=== PATIENT | female | born 1995 | race Caucasian/White ===

== ENCOUNTER → 2016-09-24 11:39 | Observation (INO) ==
--- NOTE | 2016-09-24 09:16 | OB/GYN History & Physical ---
Date of Encounter: 09/24/16 Time of Encounter: 09:12 Assessment and Plan (1) 37 weeks gestation of Current visit: Yes Status: Acute monitor heart rate and uterine tone via external monitoring check cervical progression check for rupture of membranes (2) Small for gestational age fetus affecting management of mother in [place] in third trimester Current visit: Yes Status: Acute (3) Abnormal quad screen Current visit: Yes Status: Acute History of Present Illness Chief complaint: decreased movement HPI: Ms. Mcgowan is a 21 year old female at 37 weeks 3 days here today for decreased movement. She states that last night when she laid down the fetus did not increase and movement as per normal. There also was decreased movement this morning. She was told that there was decreased amniotic fluid during ultrasound at her last visit and came in today due to concern. She denies headache, blurry vision, vaginal spotting, vaginal leaking of fluid, pedal edema. She does report that she had a large amount of mucus followed by vaginal leaking of fluid one week ago. This has stopped. Labs: Group B strep negative. Rubella and varicella nonimmune. Hepatitis B, HIV, syphilis, gonorrhea, chlamydia negative. Past Med Surg Social Fam HX - Past Medical History Medical history: other Psychiatric history: no psych history - Past Surgical History Surgical History: other - Social History Smoking Status: Never smoker Smokeless Tobacco Status: No Alcohol use: none Drug use: none - Family History Mother Name: Rufina Living Status: Still Living Hx Family Cardiac Disorders: No Hx Family Respiratory Disorders: No Hx Family Cancer: No Hx Family GI Disorders: No Hx Family Genitourinary Disorders: No Hx Family Endocrine Disorder: No Hx Family Musculoskeletal Disorders: No Hx Family Neuromuscular Disorders: No Hx Family Neurologic Disorders: No Hx Family HEENT Disorders: No Hx Family Autoimmune Disorders: No Hx Family Reproductive Disorders: No Hx Family Psychosocial Disorders: No Hx Family Medical Disorders: No Obstetrical History - Pregnancies : 2 Medications and Allergies Allergies Sulfa (Sulfonamide Antibiotics) Allergy (Verified 02/16/16 08:49) See Comments Review of System OB - Constitutional Constitutional ROS IM: as per HPI Exam - Constitutional Constitutional: well developed, well nourished, no acute distress, average body habitus - HEENT HEENT: Normocephaly, Mucus Membranes Moist - Neck Neck exam: supple - Lungs Respiratory exam: CTAB - Cardiovascular Cardiovascular exam: RRR, +S1, +S2 - Abdomen Abdomen: Present: bowel sounds normal, gravid, non tender - Extremities Extremities exam: normal inspection, warm Results All other labs normal.
== END | disposition home or self-care (01) ==
LOC: 1NENULAB
PROVIDERS: ADMIT Student in an Organized Health Care Education/Training Program; ATTEND Student in an Organized Health Care Education/Training Program

== ENCOUNTER 2016-10-03 09:14 | Inpatient (IN) ==
[2016-10-03] MEDS ORDERED: Naloxone 0.4 MG/ML INJ IVP PRN (09:30)
[2016-10-03] MEDS ORDERED: Famotidine 20 MG/2 ML VIAL IVP PRN (09:30)
[2016-10-03] MEDS ORDERED: *HR* Nalbuphine 20 MG/ML AMPUL IVP PRN (09:32)
[2016-10-03] MEDS ORDERED: Ondansetron 4 MG/2 ML VIAL IVP PRN (09:32)
[2016-10-03] MEDS ORDERED: miSOPROStol 25 MCG TABLET PO PRN (09:33)
[2016-10-03] MEDS ORDERED: Ringers Solution, Lactated 1,000 ML IVC SCH (09:45)
[2016-10-03 10:04] LABS: Basophils % 0.2 %; Eosinophils # 0.6 K/mcL (0.0-0.6); Eosinophils % 5.1 %; Hematocrit 36.5 % (35.3-44.9); Hemoglobin 12.5 g/dL (11.5-15.4); Immature Granulocytes % 0.8 % (0-4); Lymphocytes # 1.7 K/mcL (0.6-4.6); Lymphocytes % 13.7 %; Mean Corpuscular HGB Conc 34.2 g/dL (31.6-35.5); Mean Corpuscular Hemoglobin 30.1 pg (28.0-33.3); Mean Platelet Volume 10.8 fL (9.4-12.4); Monocytes # 0.7 K/mcL (0.0-1.3); Monocytes % 5.4 %; Neutrophils # 9.2 K/mcL (1.6-8.9); Platelet Count 200 K/mcL (140-400); Red Blood Count 4.15 M/mcL (3.82-4.97); Red Cell Distribution Width 13.8 % (11.5-14.5); Segmented Neutrophils % 74.8 %
[2016-10-03] MEDS ORDERED: miSOPROStol 25 MCG TABLET VG PRN (10:34)
--- NOTE | 2016-10-03 10:46 | Anesthesia Evaluation PreOp ---
Date of Encounter: 10/03/16 Time of Encounter: 10:44 - Past History Planned Operation: vaginal del, Cardiac History: Denies any Significant Hx, Other (MVP, no functional limitations, no aud murmur.) Pulmonary History: Denies Any Significant HX RITUAL CIRCUMCISER History: Denies Any Significant HX Other Medical History: Thyroid (hyper, previous managed on synthroid.) Anesthesia History: No Prior Anesthetic Complications, Past Anesthesia (t/a, egd 's) : Yes (39) Alcohol Use: none Drug use: none Medications and Allergies Pnv Plus Multivit Tab 1 cap PO DAILY 10/03/16 [History] Allergies Sulfa (Sulfonamide Antibiotics) Allergy (Verified 02/16/16 08:49) See Comments Anesthesia Results - Labs 10/03/16 09:40 Anesthesia Exam - HEENT Pupil (Motor): Pupils equal Mallampati: II Teeth: Normal Oral Opening: Greater than 3 - RITUAL CIRCUMCISER LOC: Oriented RITUAL CIRCUMCISER Motor: Normal RUE, Normal LUE, Normal RLE, Normal LLE, Normal Face RITUAL CIRCUMCISER Sensory: Normal: RUE, LUE, RLE, LLE, Face - Cardiac Rhythm: Regular Murmur: None - Pulmonary Breath Sounds: bilateral Clear Respiratory Effort: Symmetrical Anesthesia Assess/Plan ASA Score: 2 Modified [place] Scale for Level of Consciousness: Cooperative, oriented, and tranquil Anesthetic Plan: General, Regional Monitoring Plan: Standard Monitors
--- NOTE | 2016-10-03 10:58 | OB/GYN History & Physical ---
Date of Encounter: 10/03/16 Time of Encounter: 10:53 Assessment and Plan (1) Oligohydramnios Current visit: Yes Status: Acute Admit for IOL. GBS negative SVE 1/thick Cytotec 25 vaginally Reynolds placed in cervix using sterile technique, balloon inflated with 30 mL sterile water. Pt tolerated well. Epidural when requested. Anticipate . Qualifiers: Fetus number: single or unspecified fetus Trimester: third trimester Qualified Code(s): O41.03X0 - Oligohydramnios, third trimester, not applicable or unspecified (2) 38 weeks gestation of Current visit: Yes Status: Acute (3) Small for gestational age fetus affecting management of mother in [place] in third trimester Current visit: No Status: Acute History of Present Illness Chief complaint: Oligohydramnios, IUGR, IOL HPI: Ms. Mcgowan is a 21 year old female presenting at 38w5d for IOL due to Oligohydramnios and IUGR. Patient reports this has been going well and denies many problems. Today, she states she feels good overall. History and medications reviewed. Patient reports medical history of mitral valve prolapse and esophagitis, with yearly EGDs for monitoring. Patient reports only taking vitamins and no other medications. Denies any problems with previous , reports a daughter that is currently 18 months old. Patient denies any current complaints. Good movement reported. Blood type A positive, GBS negative, serologies negative, rhubella non-immune. Past Med Surg Social Fam HX - Past Medical History Medical history: thyroid disease, other Psychiatric history: no psych history - Past Surgical History Surgical History: other - Social History Smoking Status: Never smoker Smokeless Tobacco Status: No Alcohol use: none Drug use: none - Family History Mother Living Status: Still Living Hx Family Cardiac Disorders: No Hx Family Respiratory Disorders: No Hx Family Cancer: No Hx Family GI Disorders: No Hx Family Endocrine Disorder: No Hx Family Neuromuscular Disorders: No Hx Family Neurologic Disorders: No Hx Family HEENT Disorders: No Hx Family Autoimmune Disorders: No Brother Adopted: No Family Member Ethnicity: Non- Living Status: Still Living Hx Family Cardiac Disorders: No Hx Family Respiratory Disorders: Yes (asthma) Hx Family Cancer: No Hx Family GI Disorders: No Hx Family Genitourinary Disorders: No Hx Family Endocrine Disorder: No Hx Family Musculoskeletal Disorders: No Hx Family Neuromuscular Disorders: No Hx Family Neurologic Disorders: No Hx Family HEENT Disorders: No Hx Family Autoimmune Disorders: No Hx Family Reproductive Disorders: No Hx Family Psychosocial Disorders: No Hx Family Medical Disorders: No Obstetrical History - Pregnancies : 2 Medications and Allergies Pnv Plus Multivit Tab 1 cap PO DAILY 10/03/16 [History] Allergies Sulfa (Sulfonamide Antibiotics) Allergy (Verified 02/16/16 08:49) See Comments Review of System OB All systems PM: reviewed and no additional remarkable complaints except as stated Exam - Vital Signs Vital signs: Initial Vital Signs Pulse Resp BP 94 16 102/67 10/03/16 09:42 10/03/16 09:42 10/03/16 09:42 - Constitutional Constitutional: well developed, well nourished, no acute distress - Lungs Respiratory exam: CTAB - Cardiovascular Cardiovascular exam: RRR - Abdomen Abdomen: Present: gravid, non tender - Extremities Extremities exam: full ROM, normal inspection - Vagina Vagina: Present: normal moisture - Cervix Dilation: 1 Effacement: 0 Station: -2 - Uterus Uterus exam: Present: normal size. Absent: tender - Anus/Rectum Anus/Rectum: Present: normal perianal skin Results Result Diagrams: 10/03/16 09:40 Abnormal lab results WBC 12.4 K/mcL (4.3-11.1) H 10/03/16 09:40 Neutrophils # 9.2 K/mcL (1.6-8.9) H 10/03/16 09:40 All other labs normal. - VTE Reasons for not Prescribing Prophylaxis: Treatment not Indicated - Low risk for VTE
--- NOTE | 2016-10-03 14:35 | OB Labor Progress Note ---
Date of Encounter: 10/03/16 Time of Encounter: 14:33 Labor Progress Note - Subjective Subjective: Pt reports mild to moderate discomfort with contractions. - Cervix Cervix: 3-4/50/-1 - Heart Tones Heart Tones: Category I - [place]: 2-3 minutes - Plan Plan: Reynolds out at this time. Will AROM shortly. Anticipate .
--- NOTE | 2016-10-03 14:56 | OB Labor Progress Note ---
Date of Encounter: 10/03/16 Time of Encounter: 14:54 Labor Progress Note - Subjective Subjective: Pt reports pain is now 7/10 with contractions - Cervix Cervix: 3-4/50/-1 - Heart Tones Heart Tones: Category I - [place]: 2-3 - Interventions Interventions: AROM for moderate amount clear fluid - Plan Plan: Epidural when requested. Will augment with pitocin if needed for adequate contraction pattern. Anticipate .
[2016-10-03] MEDS ORDERED: *HR* FentaNYL (PF) 100 MCG/2 ML VIAL ONE (16:00)
[2016-10-03] MEDS ORDERED: Epidural Premix (fent/bupiv) 110 ML EP ONE ×2 (16:00→21:59)
[2016-10-03] MEDS ORDERED: *HR* Ropivacaine/PF 0.2% 10 ML AMPUL ONE ×2 (16:00→20:04)
[2016-10-03] MEDS ORDERED: *HR* Ropivacaine/PF 0.2% 10 ML AMPUL EP ONE (16:23)
[2016-10-03] MEDS ORDERED: EPHEDrine 50 MG/ML VIAL IVP PRN (16:23)
[2016-10-03] MEDS ORDERED: *HR* FentaNYL (PF) 100 MCG/2 ML VIAL EP ONE (16:23)
--- NOTE | 2016-10-03 16:27 | Anesthesia Procedures ---
Date of Encounter: 10/03/16 Time of Encounter: 16:25 Procedures: Anesthesia - Epidural/Spinal Patient ID/Chart reviewed: Yes Patient examined: Yes OB Eval: Contractions: Non-stressed pattern Consent Obtained: Yes Supplemental Oxygen: None/Room Air Site Prep: Aseptic Technique Patient position: upright Local Anesthetic: Lidocaine 1% Touhy Needle Gauge: 18 Touhy Needle Depth (cm): 4 Catheter Depth at Skin (cm): 10 Test Dose (1.5% Lido + Epi): Volume given (mls): 3 Test Dose Result: Negative Loading Dose: 0.25% Marcaine (mls): 6 Loading Dose: Fentanyl (mcg): 100 Loading Dose: Other: 2ml nss Loading Dose Administered: Thru Touhy Needle Infusion Med: 0.125% Bupivacaine w/ 2 mcg/ml Fentanyl Infusion Rate (mls/hr): 15 Interspace Used: L3-L4 Loss of Resistance (LOIS): Yes Blood: No CSF: No Paresthesia: No
[2016-10-03] MEDS ORDERED: Epidural Premix (fent/bupiv) 110 ML EP SCH (16:30)
--- NOTE | 2016-10-03 17:11 | OB Labor Progress Note ---
Date of Encounter: 10/03/16 Time of Encounter: 17:09 Labor Progress Note - Subjective Subjective: Pt reports she is comfortable with epidural. - Cervix Cervix: 4/60/-1 - Heart Tones Heart Tones: Category I - [place]: 2-3 - Interventions Interventions: IUPC placed - Plan Plan: Continue to monitor. Will augment with pitocin if needed for adequate contractions.
[2016-10-03] MEDS ORDERED: Oxytocin 20 units/ LR 1000 mL 20 UNIT/1,000 ML BAG IVC SCH (17:45)
--- NOTE | 2016-10-03 19:59 | OB Labor Progress Note ---
Date of Encounter: 10/03/16 Time of Encounter: 19:57 Labor Progress Note - Subjective Subjective: Pt reports pain 6/10 with contractions. - Cervix Cervix: 4/80/-1 - Heart Tones Heart Tones: Category I - [place]: 2-3 minutes - Interventions Interventions: Pt repositioned to right lateral with peanut ball. - Plan Plan: Continue to monitor and titrate pitocin for adequate contractions.
--- NOTE | 2016-10-04 01:57 | OB/GYN Procedure Note ---
Delivery - Delivery Date: 10/04/16 Provider: Alyssa Thomas Intrapartum events: oligohydramnios Delivery induction: edward, misoprostol Delivery augmentation: rupture of membranes, pitocin Delivery monitor: external FHT, internal uterine Anesthesia: epidural Estimated Blood Loss: 200 - (s) Infant A Infant Delivery Date: 10/04/16 Delivery Time: 01:27 Presentation: vertex Position: BERNARDINO Route of delivery: Gender: Female Viability: Viable Pounds: 6 Ounces: 4 Weight Gram: 2850 kg at 1 minute: 8 at 5 mins: 9 Shoulder Dystocia: not encountered Specimens collected: cord blood Placenta: spontaneous Cord: nuchal cord, 3 umbilical vessels, nuchal reduced - Repair Episiotomy: none Laceration Description: None - Complications Delivery complications: none Delivery comments: 21 year-old presenting for IOL due to oligohydramnios at 38 weeks. Pt received edward and cytotec for induction and then her labor was augmented with AROM and pitocin. She had an epidural for pain control. She progressed normally to over intact perineum for viable female infant weighing 6lbs 4oz. with apgars 8/9. After a 60 second delay the cord was clamped and cut and the placenta delivered spontaneous and intact. No lacerations were noted. EBL 200ml. Mother and baby stable in kangaroo care following delivery. - Disposition Mom disposition: stable in LDR disposition: stable in LDR
[2016-10-04] MEDS ORDERED: Oxytocin 20 units/ LR 1000 mL 20 UNIT/1,000 ML BAG IVC SCH (02:19)
[2016-10-04] MEDS ORDERED: Measles/Mumps/Rubella Vacc 0.5 ML VIAL SQ PRN (02:19)
[2016-10-04] MEDS: Ibuprofen 600 MG TABLET PO PRN ×2 (05:25→16:10)
[2016-10-04] MEDS: Prenatal Vit/FA 1 EACH TABLET PO SCH (07:35)
[2016-10-04] MEDS: Acetaminophen 325 MG TABLET PO PRN ×2 (07:35→20:38)
[2016-10-05] MEDS: Ibuprofen 600 MG TABLET PO PRN (06:05)
[2016-10-05] MEDS: Prenatal Vit/FA 1 EACH TABLET PO SCH (08:17)
[2016-10-05 08:38] VITALS: BP 102/66
--- NOTE | 2016-10-05 08:38 | Discharge Summary ---
Date of Encounter: 10/05/16 Time of Encounter: 08:36 - Discharge Diagnosis (1) Vaginal delivery Priority: Primary Status: Acute Comments: Patient doing well post vaginal delivery day 1. Pain well controlled VSS Lochia light and without clots Passing flatus and urinating without difficulty Follow up in office in 6 weeks Discharge home today - Discharge Medications Prescriptions: Ibuprofen [Motrin] 600 mg PO Q6HR PRN #60 tablet PRN Reason: Cramping Home Medications: Pnv Plus Multivit Tab 1 cap PO DAILY 10/03/16 [History] Docusate [Colace] 100 mg PO BID capsule 10/05/16 [Rx] Ibuprofen [Motrin] 600 mg PO Q6HR PRN #60 tablet 10/05/16 [Rx] Allergies/Adverse Reactions: Allergies Sulfa (Sulfonamide Antibiotics) Allergy (Verified 02/16/16 08:49) See Comments Data Procedures and tests throughout hospitalization: Laboratory Tests 10/03/16 09:40 WBC 12.4 H RBC 4.15 Hgb 12.5 Hct 36.5 MCV 88.0 MCH 30.1 MCHC 34.2 RDW 13.8 Plt Count 200 MPV 10.8 Immature Gran % 0.8 Seg Neutrophils % 74.8 Lymphocytes % 13.7 Monocytes % 5.4 Eosinophils % 5.1 Basophils % 0.2 Neutrophils # 9.2 H Lymphocytes # 1.7 Monocytes # 0.7 Eosinophils # 0.6 Basophils # 0.0 Date of admission: 10/03/16 09:14 Primary care physician: Nixon Zheng CNP Discharging clinician: Sahra Gutierrez Anticipated date of discharge: 10/05/16 - Patient Status Disposition: Home, Self-Care Condition: Good Functional capacity at discharge: independent ambulation Overall status at discharge: patient is progressing back to baseline - Discharge Instructions Follow Up With: Nixon Zheng CNP [Primary Care Provider] - Alyssa Thomas CNM [Non-Partnered Physician] - - Diet and Activity Activity: increase activity as tolerated Diet: regular diet Hospital Course Reason for admission: induction of labor, IUP at term Delivery: Episiotomy: none Laceration: none Other procedures: none complications: none Discharge diagnosis: IUP at term delivered baby: female Time Attestation: Total time spent providing and/or coordinating discharge services: Time Spent: Less than 30 minutes Exam - Constitutional Vitals: Temp Pulse Resp BP Pulse Ox 97.6 F 78 16 93/64 97 10/04/16 20:45 10/04/16 20:45 10/04/16 20:45 10/04/16 20:45 10/04/16 20:45 General appearance IM: cooperative, A&O X 3, pleasant - Respiratory Respiratory exam: Present: CTAB - Cardiovascular Cardiovascular exam IM: Present: RRR, +S1, +S2 - GI/Abdominal GI/Abdominal exam IM: normal bowel sounds, soft - Rectal Rectal exam: deferred - Uterine Tone: Firm Uterus Position: 1 Finger Below Umbilicus, Midline - Extremities Exam Extremities exam IM: Present: normal capillary refill, normal inspection, radial pulses palpable and symetrical. Absent: tenderness - Neurological Exam Neurological exam: alert, oriented X3
== END 2016-10-05 13:08 | disposition home or self-care (01) | DRG 560 ==
LOC: 1NENULAB 09:14 → 1NENUOBS 10-04 04:27
PROVIDERS: ADMIT Obstetrics & Gynecology; ATTEND Obstetrics & Gynecology

== ENCOUNTER → 2017-08-11 16:21 | Observation (INO) ==
[2017-08-11 15:59] LABS: Amphetamine Screen,Urine Negative ng/mL (Cutoff=1000); Barbiturate Screen,Urine Negative ng/mL (Cutoff=200); Benzodiazepines Screen,Urine Negative ng/mL (Cutoff=200); Cannabinoid Screen,Urine Negative ng/mL (Cutoff = 50); Cocaine Screen,Urine Negative ng/mL (Cutoff= 300); Opiate Screen,Urine Negative ng/mL (Cutoff=300); Phencyclidine Screen,Urine Negative ng/mL (Cutoff=25)
--- NOTE | 2017-08-11 17:16 | OB/GYN Progress Note ---
Date of Encounter: 08/11/17 Time of Encounter: 17:14 - Assessment and Plan (1) 39 weeks gestation of Current Visit: Yes Status: Acute (2) Encounter for suspected PROM, with rupture of membranes not found Current Visit: Yes Status: Acute Nitrazine and fern negative. Discharged home with when to return to triage precautions. IOL scheduled for AM. Subjective - Subjective Interval history: Sent over from office for evaluation for rupture of membranes. pt states leaking fluid when ambulating since yesterday. Reports good movement, denies vaginal bleeding or contractions. Antepartum ROS: loss of fluid, movement normal, no vaginal bleeding, no contractions Objective - Vital Signs Vital Signs: Intake and Output 08/11/17 08/11/17 08/11/17 07:59 15:59 23:59 Other: Weight 80.1 kg Patient Weight 08/11/17 23:59 Weight 80.1 kg - Exam FHR: auscultation normal FHR comments: Baseline 130 Abdomen: Present: normal appearance, soft, gravid Uterus: Present: normal Cervical dilation: 3/50
== END | disposition home or self-care (01) ==
LOC: 1NENULAB
PROVIDERS: ADMIT Obstetrics & Gynecology; ATTEND Obstetrics & Gynecology

== ENCOUNTER 2017-08-12 06:00 | Inpatient (IN) ==
[2017-08-12] MEDS ORDERED: Ondansetron 4 MG/2 ML VIAL IVP PRN (06:32)
[2017-08-12] MEDS ORDERED: Metoclopramide 10 MG/2 ML VIAL IVP PRN (06:32)
[2017-08-12] MEDS ORDERED: *HR* Nalbuphine 10 MG/ML AMPUL IVP PRN (06:32)
[2017-08-12] MEDS ORDERED: Famotidine 20 MG/2 ML VIAL IVP PRN (06:32)
[2017-08-12] MEDS ORDERED: Naloxone 0.4 MG/ML INJ IVP PRN (06:32)
[2017-08-12] MEDS ORDERED: Ringers Solution, Lactated 1,000 ML IVC SCH (06:45)
--- NOTE | 2017-08-12 06:59 | Anesthesia Evaluation PreOp ---
Date of Encounter: 08/12/17 Time of Encounter: 06:52 - Past History Planned Operation: vaginal del, induction Cardiac History: Other (MVP, METS >4 without comp) Pulmonary History: Denies Any Significant HX PUBLIC HEALTH NUTRITIONIST History: Denies Any Significant HX Other Medical History: Other (scoliosis, no radiculopathy or medical RX done. previous 2 epidural without problems) Anesthesia History: No Prior Anesthetic Complications, Past Anesthesia Alcohol Use: none Drug use: none Medications and Allergies Pnv Plus Multivit Tab 1 cap PO DAILY 10/03/16 [History] Ferrous Sulfate [Iron] 325 mg PO BID 07/01/17 [History] 3 Allergy/AdvReac Type Severity Reaction Status Date / Time Sulfa (Sulfonamide Allergy See Verified 04/13/17 02:31 Antibiotics) Comments Anesthesia Exam - HEENT Pupil (Motor): Pupils equal Mallampati: II Oral Opening: Less than or equal to 3 - PUBLIC HEALTH NUTRITIONIST LOC: Oriented PUBLIC HEALTH NUTRITIONIST Motor: Normal RUE, Normal LUE, Normal RLE, Normal LLE, Normal Face PUBLIC HEALTH NUTRITIONIST Sensory: Normal: RUE, LUE, RLE, LLE, Face - Cardiac Rhythm: Regular Murmur: None - Pulmonary Breath Sounds: bilateral Clear Respiratory Effort: Symmetrical Anesthesia Assess/Plan ASA Score: 2 Modified [place] Scale for Level of Consciousness: Cooperative, oriented, and tranquil Anesthetic Plan: General, Regional Monitoring Plan: Standard Monitors Recovery Plan: PACU
[2017-08-12] MEDS ORDERED: *HR* FentaNYL (PF) 100 MCG/2 ML VIAL EP ONE (07:00)
[2017-08-12] MEDS ORDERED: Epidural Premix (fent/bupiv) 110 ML EP SCH (07:00)
[2017-08-12] MEDS ORDERED: EPHEDrine 50 MG/ML VIAL IVP PRN (07:00)
[2017-08-12] MEDS ORDERED: Bupivacaine-MPF 0.25% 10 ML VIAL EP ONE (07:00)
[2017-08-12] MEDS ORDERED: Oxytocin 20 units/ LR 1000 mL 20 UNIT/1,000 ML BAG IVC SCH (07:30)
[2017-08-12 07:32] LABS: Basophils % 0.2 %; Eosinophils # 0.2 K/mcL (0.0-0.6); Eosinophils % 1.8 %; Hematocrit 38.5 % (35.3-44.9); Immature Granulocytes % 1.6 % (0-4); Lymphocytes # 1.6 K/mcL (0.6-4.6); Lymphocytes % 12.1 %; Mean Corpuscular HGB Conc 33.8 g/dL (31.6-35.5); Mean Corpuscular Hemoglobin 30.7 pg (28.0-33.3); Mean Platelet Volume 10.9 fL (9.4-12.4); Monocytes # 0.8 K/mcL (0.0-1.3); Platelet Count 176 K/mcL (140-400); Red Blood Count 4.23 M/mcL (3.82-4.97); Red Cell Distribution Width 14.3 % (11.5-14.5); Segmented Neutrophils % 78.3 %
--- NOTE | 2017-08-12 07:37 | OB/GYN History & Physical ---
Date of Encounter: 08/12/17 Time of Encounter: 07:35 Assessment and Plan (1) 39 weeks gestation of Current visit: No Status: Acute start pitocin for IOL, ok for epidural if desired, anticipate History of Present Illness HPI: Ms. Pereira is a 22 year old female @ 39+2 weeks who presents to the office for her scheduled IOL, she does not report LOF, VB or ctxs, feels good FM, course uncomplicated so far, GBS neg. Past Med Surg Social Fam HX - Past Medical History Medical history: valvular heart disease Psychiatric history: no psych history - Past Surgical History Surgical History: other - Social History Smoking Status: Never smoker Smokeless Tobacco Status: No Alcohol use: none Drug use: none - Family History Mother Living Status: Still Living Hx Family Cardiac Disorders: No Hx Family Respiratory Disorders: No Hx Family Cancer: No Hx Family GI Disorders: No Hx Family Endocrine Disorder: No Hx Family Neuromuscular Disorders: No Hx Family Neurologic Disorders: No Hx Family HEENT Disorders: No Hx Family Autoimmune Disorders: No Brother Adopted: No Family Member Ethnicity: Non- Living Status: Still Living Hx Family Cardiac Disorders: No Hx Family Respiratory Disorders: Yes Hx Family Cancer: No Hx Family GI Disorders: No Hx Family Genitourinary Disorders: No Hx Family Endocrine Disorder: No Hx Family Musculoskeletal Disorders: No Hx Family Neuromuscular Disorders: No Hx Family Neurologic Disorders: No Hx Family HEENT Disorders: No Hx Family Autoimmune Disorders: No Hx Family Reproductive Disorders: No Hx Family Psychosocial Disorders: No Hx Family Medical Disorders: No Obstetrical History - Pregnancies : 3 Para: 2 Medications and Allergies Pnv Plus Multivit Tab 1 cap PO DAILY 10/03/16 [History] Ferrous Sulfate [Iron] 325 mg PO BID 07/01/17 [History] 3 Allergy/AdvReac Type Severity Reaction Status Date / Time Sulfa (Sulfonamide Allergy See Verified 04/13/17 02:31 Antibiotics) Comments Review of System OB All systems PM: reviewed and no additional remarkable complaints except as stated Exam - Constitutional Constitutional: no acute distress - HEENT HEENT: PERRL - Neck Neck exam: supple - Lungs Respiratory exam: CTAB - Cardiovascular Cardiovascular exam: RRR - Abdomen Abdomen: Present: gravid - Cervix Dilation: 3 Results Result Diagrams: 08/12/17 06:33 Abnormal lab results WBC 12.8 K/mcL (4.3-11.1) H 08/12/17 06:33 Neutrophils # 10.0 K/mcL (1.6-8.9) H 08/12/17 06:33 All other labs normal. - VTE Reasons for not Prescribing Prophylaxis: Treatment not Indicated - Low risk for VTE
[2017-08-12 07:41] LABS: Amphetamine Screen,Urine Negative ng/mL (Cutoff=1000); Barbiturate Screen,Urine Negative ng/mL (Cutoff=200); Benzodiazepines Screen,Urine Negative ng/mL (Cutoff=200); Cannabinoid Screen,Urine Negative ng/mL (Cutoff = 50); Cocaine Screen,Urine Negative ng/mL (Cutoff= 300); Opiate Screen,Urine Negative ng/mL (Cutoff=300); Phencyclidine Screen,Urine Negative ng/mL (Cutoff=25)
[2017-08-12] MEDS ORDERED: miSOPROStol 25 MCG TABLET VG SCH (08:00)
--- NOTE | 2017-08-12 11:16 | OB Labor Progress Note ---
Date of Encounter: 08/12/17 Time of Encounter: 11:14 Labor Progress Note - Subjective Subjective: patient on the birthing ball - Vital Signs Vital Signs: VSS - Cervix Cervix: 3cm - Heart Tones Heart Tones: CAT 1 (though on the birthing ball so periods of "breaks" noted) - [place]: Q 1-2 - Plan Plan: pitocin now @ 10, ok for epidural if she desires, anticipate
--- NOTE | 2017-08-12 15:01 | OB Labor Progress Note ---
Date of Encounter: 08/12/17 Time of Encounter: 14:59 Labor Progress Note - Subjective Subjective: patient feeling more of her ctxs, wants epidural - Vital Signs Vital Signs: VSS - Cervix Cervix: 4/80 - Heart Tones Heart Tones: CAT 1 - [place]: Q1 - Plan Plan: ok for epidural, will "break water" after epidural, anticipate
[2017-08-12] MEDS ORDERED: Bupivacaine-MPF 0.25% 10 ML VIAL ONE (15:09)
[2017-08-12] MEDS ORDERED: *HR* FentaNYL (PF) 100 MCG/2 ML VIAL ONE (15:09)
[2017-08-12] MEDS ORDERED: Epidural Premix (fent/bupiv) 110 ML EP ONE (15:09)
--- NOTE | 2017-08-12 15:51 | Anesthesia Procedures ---
Date of Encounter: 08/12/17 Time of Encounter: 15:12 Procedures: Anesthesia - Epidural/Spinal Patient ID/Chart reviewed: Yes Patient examined: Yes OB Eval: Gestational age: 39 OB Eval: : 3 OB Eval: Hx Para: 2 OB Eval: Dilated at (cm): 4 OB Eval: Contractions: Non-stressed pattern Consent Obtained: Yes Supplemental Oxygen: None/Room Air Site Prep: Aseptic Technique, Sterile prep and drape, Povidone-Iodine 1% Patient position: upright Local Anesthetic: Lidocaine 1% Amount of Local Anesthetic used: 3 Touhy Needle Gauge: 18 Touhy Needle Depth (cm): 5 Catheter Depth at Skin (cm): 16 Test Dose (1.5% Lido + Epi): Volume given (mls): 3 Test Dose Result: Negative Loading Dose: 0.25% Marcaine (mls): 8 Loading Dose: Fentanyl (mcg): 100 Loading Dose Administered: Thru Catheter Infusion Med: 0.125% Bupivacaine w/ 2 mcg/ml Fentanyl Infusion Rate (mls/hr): [address]: Tegaderm, Tape Interspace Used: L3-L4 Loss of Resistance (LOIS): Yes Blood: No CSF: No Paresthesia: No Vitals + FHT's: 3 Vital Signs Time 1512 1528 1530 1535 1540 1545 BP 111/68 112/67 112/63 110/65 106/61 104/66 Pulse 64 77 72 87 81 74 FHTs 130 130 130 130 130 130
--- NOTE | 2017-08-12 17:11 | OB Labor Progress Note ---
Date of Encounter: 08/12/17 Time of Encounter: 17:09 Labor Progress Note - Subjective Subjective: patient is comfortable - Vital Signs Vital Signs: VSS - Cervix Cervix: 5-6/80 - Heart Tones Heart Tones: CAT 1 - Plan Plan: patient AROM'ed, cont pitocin, anticipate
--- NOTE | 2017-08-12 21:39 | OB/GYN Procedure Note ---
Delivery - Delivery Date: 08/12/17 Provider: Chris Martin Intrapartum events: other(please specify) (CAT 2 tracing) Delivery induction: oxytocin Delivery augmentation: rupture of membranes Delivery monitor: none Anesthesia: epidural Estimated Blood Loss: 300 - Repair Episiotomy: none Laceration Description: Perineal - 2nd Degree - Complications Delivery complications: none - Disposition Mom disposition: stable in LDR disposition: stable in LDR - Comments Comments: 22 y/o now delivered a viable male infant @ 2109hrs via VAVD secondary to CAT 2 tracing. Vacuum placed and infant delivered with 1 pull. Infant delivered SYL, weight 4265g, placenta delivered @ 2114hrs. 2nd degree laceration repaired with 3-0 vicryl. No nuchal cord, EBL 300. Mother and stable.
[2017-08-13] MEDS ORDERED: Benzocaine/Menthol 56 GM AEROSOL SPRAY TP PRN (00:20)
[2017-08-13] MEDS ORDERED: Oxytocin 20 units/ LR 1000 mL 20 UNIT/1,000 ML BAG IVC SCH (00:20)
[2017-08-13] MEDS ORDERED: Acetaminophen 325 MG TABLET PO PRN (00:20)
[2017-08-13] MEDS ORDERED: Measles/Mumps/Rubella Vacc 0.5 ML VIAL SQ PRN (00:20)
[2017-08-13] MEDS: Ibuprofen 600 MG TABLET PO PRN ×2 (06:50→13:13)
--- NOTE | 2017-08-13 08:06 | Discharge Summary ---
Date of Encounter: 08/13/17 Time of Encounter: 08:04 - Discharge Diagnosis (1) Vacuum extraction, delivered, current hospitalization Priority: Secondary Status: Acute Comments: Patient doing well and requesting discharge (2) 39 weeks gestation of Priority: Secondary Status: Acute (3) Term delivered Priority: Primary Status: Acute Comments: Meeting milestones. Requesting discharge today - Discharge Medications Prescriptions: Ibuprofen [Motrin] 600 mg PO Q6HR PRN #60 tablet PRN Reason: pain Home Medications: Pnv Plus Multivit Tab 1 cap PO DAILY 10/03/16 [History] Ferrous Sulfate [Iron] 325 mg PO BID 07/01/17 [History] Acetaminophen [Tylenol] 650 mg PO Q6HR PRN tablet 08/13/17 [Rx] Benzocaine/Menthol [place] [Dermoplast [place]] 1 appl TP QID PRN aerosol 08/13/17 [Rx] Docusate [Colace] 100 mg PO BID capsule 08/13/17 [Rx] Ibuprofen [Motrin] 600 mg PO Q6HR PRN #60 tablet 08/13/17 [Rx] Allergies/Adverse Reactions: 3 Allergy/AdvReac Type Severity Reaction Status Date / Time Sulfa (Sulfonamide Allergy See Verified 04/13/17 02:31 Antibiotics) Comments Data Procedures and tests throughout hospitalization: Laboratory Tests 08/12/17 08/12/17 06:32 06:33 WBC 12.8 H RBC 4.23 Hgb 13.0 Hct 38.5 MCV 91.0 MCH 30.7 MCHC 33.8 RDW 14.3 Plt Count 176 MPV 10.9 Immature Gran % 1.6 Seg Neutrophils % 78.3 Lymphocytes % 12.1 Monocytes % 6.0 Eosinophils % 1.8 Basophils % 0.2 Neutrophils # 10.0 H Lymphocytes # 1.6 Monocytes # 0.8 Eosinophils # 0.2 Basophils # 0.0 Urine Opiates Screen Negative Ur Barbiturates Screen Negative Ur Phencyclidine Scrn Negative Ur Amphetamines Screen Negative U Benzodiazepines Scrn Negative Urine Cocaine Screen Negative U Marijuana (THC) Screen Negative Date of admission: 08/12/17 06:05 Primary care physician: Nixon Zheng CNP Discharging clinician: Nicky Narayan Anticipated date of discharge: 08/13/17 - Patient Status Disposition: Home, Self-Care Condition: Good Functional capacity at discharge: independent ambulation Overall status at discharge: patient is progressing back to baseline - Discharge Instructions Follow Up With: Nixon Zheng CNP [Primary Care Provider] - Chris Martin MD [Partnered Physician] - - Diet and Activity Activity: increase activity as tolerated, resume usual activities as tolerated Diet: regular diet Hospital Course Procedures: vacuum assisted vaginal delivery, 2 degree perineal laceration with repair Reason for admission: induction of labor, IUP at term Delivery: vacuum extraction Episiotomy: none Laceration: 2nd degree Other procedures: none complications: none Discharge diagnosis: IUP at term delivered Milo baby: male Hospital course: Uncomplicated. Patient meeting milestones. Good oral pain control Time Attestation: Total time spent providing and/or coordinating discharge services: Time Spent: Less than 30 minutes Specific discharge activities: Pelvic rest Exam - Constitutional Vitals: Temp Pulse Resp BP Pulse Ox 98.6 F 67 16 100/64 98 08/13/17 01:50 08/13/17 01:50 08/13/17 01:50 08/13/17 01:50 08/13/17 01:50 General appearance IM: A&O X 3, pleasant, no acute distress, answers questions appropriately - Respiratory Respiratory exam: Absent: respiratory distress - Cardiovascular Cardiovascular exam IM: Absent: irregular rhythm - GI/Abdominal GI/Abdominal exam IM: normal bowel sounds, soft, no peritoneal signs - Rectal Rectal exam: deferred - Uterine Tone: Firm Uterus Position: 2 Fingers Below Umbilicus - Extremities Exam Extremities exam IM: Present: pedal edema, warm. Absent: calf tenderness - Neurological Exam Neurological exam: no focal deficits
[2017-08-13] MEDS ORDERED: Prenatal Vit/FA 1 EACH TABLET PO SCH (09:00)
[2017-08-13 16:21] VITALS: BP 91/56
== END 2017-08-13 18:14 | disposition home or self-care (01) | DRG 560 ==
LOC: 1NENULAB 06:05 → 1NENUOBS 23:48
PROVIDERS: ADMIT Student in an Organized Health Care Education/Training Program; ATTEND Student in an Organized Health Care Education/Training Program

== ENCOUNTER 2021-01-11 05:06 | Inpatient (IN) ==
[2021-01-11] MEDS ORDERED: Ondansetron 4 MG/2 ML VIAL IVP PRN ×2 (08:04→11:18)
[2021-01-11] MEDS ORDERED: Naloxone 0.4 MG/ML INJ IVP PRN ×2 (08:04→11:18)
[2021-01-11] MEDS ORDERED: Lidocaine 1% 20 ML MDV INFILT PRN (08:04)
[2021-01-11] MEDS ORDERED: *HR* Nalbuphine 10 MG/ML AMPUL IV PRN (08:04)
[2021-01-11] MEDS ORDERED: Famotidine 20 MG/2 ML VIAL IVP PRN (08:04)
[2021-01-11] MEDS ORDERED: Metoclopramide 10 MG/2 ML VIAL IVP PRN (08:04)
[2021-01-11 08:15] LABS: Basophils % 0.2 %; Eosinophils # 0.4 K/mcL (0.0-0.6); Eosinophils % 2.5 %; Hematocrit 40.6 % (35.3-44.9); Hemoglobin 12.9 g/dL (11.5-15.4); Immature Granulocytes % 1.1 % (0-4); Lymphocytes # 1.9 K/mcL (0.6-4.6); Lymphocytes % 12.8 %; Mean Corpuscular HGB Conc 31.8 g/dL (31.6-35.5); Mean Corpuscular Hemoglobin 27.3 pg (28.0-33.3); Mean Corpuscular Volume 85.8 fL (83.0-100.0); Mean Platelet Volume 12.1 fL (9.4-12.4); Monocytes # 0.9 K/mcL (0.0-1.3); Monocytes % 5.8 %; Neutrophils # 11.3 K/mcL (1.6-8.9); Platelet Count 198 K/mcL (140-400); Red Blood Count 4.73 M/mcL (3.82-4.97); Red Cell Distribution Width 17.1 % (11.5-14.5); Segmented Neutrophils % 77.6 %; White Blood Count 14.5 K/mcL (4.3-11.1)
[2021-01-11 08:27] LABS: Amphetamine Screen,Urine Negative ng/mL (Cutoff=1000); Barbiturate Screen,Urine Negative ng/mL (Cutoff=200); Benzodiazepines Screen,Urine Negative ng/mL (Cutoff=200); Cannabinoid Screen,Urine Negative ng/mL (Cutoff = 50); Cocaine Screen,Urine Negative ng/mL (Cutoff= 300); Opiate Screen,Urine Negative ng/mL (Cutoff=300); Phencyclidine Screen,Urine Negative ng/mL (Cutoff=25)
[2021-01-11 08:57] LABS: Influenza A PCR Negative (Negative); Influenza B PCR Negative (Negative); Resp. Syncytial Virus PCR Negative (Negative)
[2021-01-11 09:01] LABS: SARS-CoV-2 by PCR (In House) Negative (Negative)
[2021-01-11] MEDS: Ringers Solution, Lactated 1,000 ML IVC SCH ×2 (10:47→18:45)
[2021-01-11] MEDS ORDERED: Ropivacaine/PF 0.2% 20 ML VIAL EP ONE (11:18)
[2021-01-11] MEDS ORDERED: *HR* FentaNYL (PF) 100 MCG/2 ML VIAL EP ONE (11:18)
[2021-01-11] MEDS ORDERED: EPHEDrine 50 MG/ML VIAL IVP PRN (11:18)
[2021-01-11] MEDS: Epidural Premix (fent/bupiv) 110 ML EP SCH ×2 (12:04→18:45)
[2021-01-11] MEDS ORDERED: Oxytocin 20 units/ LR 1000 mL 20 UNIT/1,000 ML BAG IVC SCH (14:30)
[2021-01-12] MEDS ORDERED: Benzocaine/Menthol 56 GM AEROSOL SPRAY TP PRN (03:02)
[2021-01-12] MEDS ORDERED: Oxytocin 20 units/ LR 1000 mL 20 UNIT/1,000 ML BAG IVC ONE (03:02)
[2021-01-12] MEDS ORDERED: Ondansetron ODT 4 MG TAB.RAPDIS SL PRN (03:02)
[2021-01-12] MEDS ORDERED: Measles/Mumps/Rubella Vacc 0.5 ML VIAL SQ PRN (03:02)
[2021-01-12] MEDS ORDERED: Lanolin 7 G OINT...G. TP PRN (03:02)
[2021-01-12] MEDS ORDERED: Oxytocin 20 units/ LR 1000 mL 20 UNIT/1,000 ML BAG IVC SCH (03:02)
[2021-01-12] MEDS: Acetaminophen 325 MG TABLET PO SCH ×4 (03:24→21:12)
[2021-01-12] MEDS: Ibuprofen 600 MG TABLET PO SCH ×4 (03:24→21:12)
[2021-01-12] MEDS: Prenatal Vit/FA 1 EACH TABLET PO SCH (08:55)
[2021-01-12 22:01] VITALS: O2SAT 99
[2021-01-13] MEDS: Ibuprofen 600 MG TABLET PO SCH ×2 (03:27→08:28)
[2021-01-13] MEDS: Acetaminophen 325 MG TABLET PO SCH ×2 (03:28→08:28)
[2021-01-13 08:16] VITALS: BP 93/65; PULSE 79; TEMP 97.9
[2021-01-13] MEDS: Prenatal Vit/FA 1 EACH TABLET PO SCH (08:28)
== END 2021-01-13 13:03 | disposition home or self-care (01) | DRG 560 ==
LOC: 1NENULAB → OBSVTOIN 05:06 → 1NENULAB 06:28 → 1NENUOBS 01-12 03:21
PROVIDERS: ADMIT Advanced Practice Midwife; ATTEND Advanced Practice Midwife